=== PATIENT | female | born 1940 ===

== ENCOUNTER 2021-05-08 16:43 | Outpatient (CLI) | payer MEDICARE ==
[2021-05-08 17:57] LABS: Hemoglobin 10.1 g/dL (12.0-16.0); Red Blood Cell (RBC) Count 3.94 mill/uL (4.20-5.40); White Blood Cell (WBC) Count 5.7 thou/uL (4.8-10.8)
[2021-05-08 17:58] LABS: Mean Corpuscular Hemoglobin 25.6 pg (27.0-31.0); Mean Corpuscular Volume 95.4 fL (78.0-98.0)
[2021-05-08 18:02] LABS: Band 3 % (5-11); Eosinophils 4 % (0-10); Lymphocytes 4 % (21-51); MDiff Complete? YES; Manual Diff?? YES; Mean Corpuscular HGB CONC 26.9 g/dL (32.0-36.0); Mean Platelet Volume 14.8 fL (7.4-10.4); Monocytes 6 % (0-10); Platelet Count 119 thou/uL (130-400); RBC Distribution Width 24.8 % (11.5-14.5); Reactive Lymphocytes 2 % (0-10)
[2021-05-08 18:03] LABS: Neutrophil 81 % (42-75)
[2021-05-08 18:04] LABS: Nucleated RBC 1 % (0)
[2021-05-08 18:07] LABS: Anisocytosis MODERATE=16-30 cells (100X) (0-5/hpf); Hypochromia SLIGHT = 6-15 cells (100X) (0-5/hpf); Platelet Morphology Comment Appears Decreased; Polychromasia MODERATE = 3-4 cells (100X) (0-2/hpf)
[2021-05-08 18:08] LABS: Giant Platelets SLIGHT; Large Platelets MODERATE
== END 2021-05-08 16:44 | disposition home or self-care (01) ==
LOC: MADLAB 16:43
PROVIDERS: ATTEND Emergency Medicine
DX: D64.9 Anemia, unspecified (principal)
CPT/HCPCS: 85025